=== PATIENT | male | born 1965 ===

== ENCOUNTER → 2018-11-30 22:52 | Outpatient (REF) | payer OTHER, SELFPAY ==
[2018-12-01 01:56] LABS: Add Manual Diff / Slide Review NO; Basophils Absolute Auto 0 /uL (0-100); Basophils Percent Auto 0.6 % (0-2); Eosinophils Absolute Auto 100 /uL (0-450); Eosinophils Percent Auto 1.5 % (2-4); Hematocrit 49.6 % (41-53); Hemoglobin 17.1 g/dL (13.5-17.5); Lymphocytes Absolute Auto 2000 /uL (1100-4500); Mean Corpuscular HGB Conc 34.5 % (30-36); Mean Corpuscular Hemoglobin 32.6 PG (26-34); Mean Corpuscular Volume 94.5 fL (80-100); Monocytes Absolute Auto 500 /uL (0-900); Monocytes Percent Auto 7.3 % (3-14); Neutrophils Absolute Auto 4300 /uL (1500-7000); Neutrophils Percent Auto 61.6 % (50-75); Platelet Count 377 X10^3/uL (150-400); Red Blood Cell Count 5.24 X10^6/uL (4.5-5.9); White Blood Cell Count 6.9 X10^3/uL (4.5-11.0)
[2018-12-04 14:25] LABS: PSA Total 1.89 ng/mL (< 4.01)
[2018-12-05 05:31] LABS: Testosterone Free 207.6 pg/mL (35.0-155.0); Testosterone Total 840 ng/dL (250-1100)
== END ==
LOC: LAB 22:52
PROVIDERS: Visit Provider Physician Assistant
DX: E29.1 Testicular hypofunction (principal)
CPT/HCPCS: 36415; 82670; 82672; 84153; 84154; 84402; 84403; 85025